=== PATIENT | male | born 1950 | race Caucasian/White ===

== ENCOUNTER 2025-01-06 16:37 | Inpatient (IN) | payer MEDICARE, SELFPAY ==
[2025-01-06] VITALS (7 sets, daily range): BP systolic 121–163; BP diastolic 73–93; BMI 25.1; BMI 25.5
[2025-01-06 13:13] LABS: % Basophils 0.3 % (0-2); % Eosinophils 3.1 % (0-6); % Immature Granulocytes 0.4 % (0-0.5); % Lymphocytes 15.4 % (20.5-51.1); % Monocytes 8.4 % (1.7-9.3); % Neutrophils 72.4 % (42.2-75.2); Absolute Eosinophils 0.2 10^3/uL (0-0.7); Absolute Lymphocytes 1.2 10^3/uL (1.2-3.4); Absolute Monocytes 0.7 10^3/uL (0.1-0.6); Absolute Neutrophils 5.7 10^3/uL (1.4-6.5); Hematocrit 43.3 % (39.0-52.0); Hemoglobin 14.9 g/dL (13.0-18.0); Mean Corp Hgb Conc. 34.4 g/dL (33.0-37.0); Mean Corpuscular Hgb 29.5 pg (27.0-31.0); Mean Corpuscular Volume 85.7 fL (80.0-94.0); Mean Platelet Volume 8.6 fL (7.4-10.4); Nucleated Red Blood Cells % 0 % (-); Platelet Count 206 10^3/uL (130-400); Red Blood Cell Count 5.05 10^6/uL (4.70-6.10); Red Cell Dist. Width 13.6 % (11.5-14.5); White Blood Cell Count 7.8 10^3/uL (4.8-10.8)
[2025-01-06 13:36] LABS: ALT (SGPT) 22 U/L (0-50); AST (SGOT) 20 U/L (17-59); Albumin 3.9 g/dl (3.5-5.0); Alkaline Phosphatase 68 U/L (38-126); Blood Urea Nitrogen 57 mg/dl (9-20); Calcium 9.4 mg/dl (8.4-10.2); Carbon Dioxide 29 mmol/L (22-30); Chloride 98 mmol/L (98-107); Glucose 92 mg/dl (70-99); Lipase 166 U/L (23-300); Potassium 4.5 mmol/L (3.5-5.1); Sodium 138 mmol/L (135-145); Total Bilirubin 1.3 mg/dl (0.2-1.3); Total Protein 6.2 g/dl (6.3-8.2); eGFR 12.18
--- NOTE | 2025-01-06 14:47 | ED.GENMED ---
History of Present Illness
General
Chief Complaint: Abdominal Symptoms
Source: patient
Exam Limitations: none
Time Seen by Provider: 01/06/25 14:13
Nursing documentation reviewed up to this point in time: agreed with
History of Present Illness
History of Present Illness:
74 yo male w h/o NIDDM, HTN states he hasn't been able to urinate for past 2 days.
Had root canal 2 weeks ago, jaw locked up, given rx for Flexeril and Medrol dose pack. Stopped taking them 2 days ago due to inability to urinate.
Denies fever/chills. Is uncomfortable with bladder pressure.
Past History
Past History
ED Past Medical History: HTN and NIDDM
ED Past Surgical History: Orthopedic
Social History
Tobacco: Non-smoker
Alcohol: None
Personal:
Living: with family
Employment: Retired
Review of Systems
Review of Systems
Allergies reviewed?: Yes
All Other Systems: ROS reviewed and negative except as documented in HPI and ROS
Constitutional: Denies fever or chills
Respiratory: Denies trouble breathing
Cardiac: Denies chest pain
ABD/GI: Reports abdominal pain; Denies nausea, vomiting or diarrhea
: Reports difficulty voiding
Musculoskeletal: Reports no symptoms
Skin: Reports no symptoms
Neurological: Reports no symptoms
Phy Exam
Physical Exam
Physical Exam:
GENERAL: No acute distress. A&Ox3.
CONSTITUTIONAL: Afebrile.
EYES: clear, conjunctivae normal
ENMT: moist mucus membranes
RESPIRATORY: Regular respirations, nonlabored, lungs clear.
CARDIOVASCULAR: Regular rate and rhythm, no murmurs, no rubs.
GI: Soft, mildly distended, suprapubic tenderness, normal BS
MUSCULOSKELETAL: Moves with ease. Well perfused.
SKIN: Warm, dry, pink
PSYCH: Normal mood and affect. Well kept, interactive and appropriate
NEUROLOGIC: Awake, alert and oriented. No focal neurological deficits
Course
Orders/Labs/Results
Orders:
Orders
01/06/25 Lunch
Potassium, 2 Gram
At Your Request: Limited Participation
Does patient need a safe tray?: No
01/06/25 12:57
Complete Blood Count/With Diff Urgent
Comprehensive Metabolic Panel Urgent
Lipase Urgent
01/06/25 14:20
Lagunas Placement- Treatment ONCE
Reason for insertion: Acute Retention
01/06/25 16:01
Admit/Transfer Patient As Directed
Co-Sign Provider:
Level of Care: Inpatient admission
Assign to:: Medical/Surgical
Physician / Group: kb/medicine
Diagnosis: toni, urinary retention
Reason for Hospitalization: toni, urinary retention
Expected length of stay greater than two midnights?: Yes
ELOS- Estimated Length of Stay in days: 3
I certify the patient meets the requirements for IP care: Yes
01/06/25 16:02
Code Status As Directed
Resuscitation Status: Full Code
PRN Pain Medication Management As Directed
May give lesser potent ordered pain med per pt: Yes
preference::
Protocol:: Medication orders for pain may be administered in a
manner that supports deferring to patient preference
when the pt is:
- Requesting an ordered lesser potent pain medication.
Least to most potent pain medications are defined
as: acetaminophen < NSAID < tramadol < opioids
(morphine, oxycodone, hydromorphone).
- Requesting a lesser dose of the same medication IF
ORDERED.
- Requesting a less intrusive route of administration
if both routes are prescribed by the provider (PO <
IV).
01/06/25 16:35
Urinalysis Reflex To Culture Urgent
Date Specimen was Collected: 01/06/25
Time Specimen was Collected: 12:51
Urine Microscopic Reflex Cult Urgent
01/06/25 18:09
Bisacodyl [Dulcolax] 10 mg RECTAL [id number] PRN
Docusate W/Senna [Senokot-S] 1 tablet PO BIDPRN PRN
Lactated Ringers [Lr] 1,000 ml IV 100 mls/hr
Polyethylene Glycol Powder [Miralax] 17 grams PO DAILYPRN PRN
Tamsulosin [Flomax] 0.4 mg PO NOW STA
01/06/25 18:09
EKG [Electrocardiogram (*1)] Routine
Reason for Study: QTc Monitoring
Activity As Directed
Activity Level: As Tolerated
Intake/ Output As Directed
Frequency: Per unit guidelines
Vital Signs As Directed
Frequency: Per unit guidelines
Renal & Bladder US [US Renal With Bladder] Routine
Comment:
Reason For Exam: toni, obstruction
DX Deep Vein Thrombosis Video Routine
01/07/25 00:00
Heparin 5,000 units SC Q8
01/07/25 06:00
Basic Metabolic Panel IN AM
Complete Blood Count/No Diff IN AM
TSH IN AM
01/07/25 08:00
Tamsulosin [Flomax] 0.4 mg PO DAILY
01/08/25 06:00
Basic Metabolic Panel IN AM
Complete Blood Count/No Diff IN AM
01/09/25 06:00
Basic Metabolic Panel IN AM
Complete Blood Count/No Diff IN AM
Abnormal Lab Results
01/06/25 01/06/25
12:57 16:35
Absolute Monos (auto) 0.7 H 10^3/uL
(0.1-0.6)
Lymphocytes % 15.4 L %
(20.5-51.1)
BUN 57 H mg/dl
(9-20)
Creatinine 4.7 H* mg/dL
(0.7-1.3)
Total Protein 6.2 L g/dl
(6.3-8.2)
Ur Occult Blood Reflex 4+ A
(Negative)
Urine RBC 30-40 A /HPF
(0-2)
Urine Albumin (Reflex) 1+ A
(Neg - Trace)
01/06/25 12:57
01/06/25 12:57
Vital Signs
Initial and Last Documented VS:
Initial Vital Signs
Temp Pulse Resp BP Pulse Ox
98.2 F 50 16 129/73 98
01/06/25 12:47 01/06/25 12:47 01/06/25 12:47 01/06/25 12:47 01/06/25 12:47
Last Documented Vital Signs
Temp Pulse Resp BP Pulse Ox
98.5 F 84 18 139/86 98
01/06/25 18:26 01/06/25 20:23 01/06/25 18:26 01/06/25 20:23 01/06/25 18:26
MDM/Problems Addressed
Differential Diagnosis Includes:
acute urine retention, UTI, BPH
MDM/Problems Addressed:
74 yo male w h/o NIDDM, HTN states he hasn't been able to urinate for past 2 days.
Had root canal 2 weeks ago, jaw locked up, given rx for Flexeril and Medrol dose pack. Stopped taking them 2 days ago due to inability to urinate.
Denies fever/chills. Is uncomfortable with bladder pressure.
#16 fr Lagunas inserted, return of 1000 clear aquilino urine
2:00 p.m.
CBC: normal
CMP: BUN/Creat 57/4.7 GFR 12.18
Plan: Admit: Acute urine retention, acute kidney failure.
Hospitalist notified of admission.
Chronic conditions affecting care: DM and HTN
*Critical Care Note
Total Time (30-74mins, 75-104mins- exclusive of procedures): Not Applicable
ED Attending Note
-
Portions of this chart may have been created with voice recognition software.� Occasional wrong word or��sound alike� substitutions may have occurred due to the inherent limitations of voice recognition software.
Discharge Plan
Departure
Patient Disposition: Admit
Date of Disposition: 01/06/25
Time of Disposition: 15:01
Admit to: Med/Surg
Presentation/result/management discussed w/ accepting MD/DO: Hospitalist
Condition: Good
Discharge Problem:
Acute retention of urine, Acute renal failure
Interventions
Interventions:
*Risk Screen - Suicide Last Done: 01/06/25 12:47
*General Assessment Last Done: 01/06/25 14:59
*Neglect/Abuse Screening Last Done: 01/06/25 12:47
*ED- Fall Risk Assessment Last Done: 01/06/25 14:59
*ED COVID-19 Vaccine History Last Done: 01/06/25 14:59
*Nursing Disposition Last Done: 01/06/25 17:41
OK-Mndwzv-Dixptfaqhs Assessment Last Done: 01/06/25 14:59
Discharge Date and Time
Discharge Date/Time: 01/06/25 18:17
--- NOTE | 2025-01-06 16:05 | HPS.HSE ---
Family Physician
-
Family Physician: Pedro Vergara
Chief Complaint
-
Inability urinate
History of Present Illness
74-year-old male with history of hypertension, diabetes now presents for inability urinate for the past 2 days. Patient had root canal 2 weeks ago, was given Flexeril and Medrol Dosepak due to issues with the jaw. Patient subsequently stopped
taking them 2 days ago as he noticed he was not able to urinate. Did feel discomfort suprapubically. Denies any other abdominal pain, melena, flank pain, fever, chills. Patient had Lagunas placed in the ED, return of 1000 cc clear aquilino urine.
Otherwise patient afebrile, normotensive, heart rate of 100. Labs notable for creatinine of 4.7. UA still pending.
Medical History
Past Medical History
Past Medical History: Reports HTN and NIDDM
Past Surgical History: Reports Orthopedic
Social History
Tobacco: Non-smoker
Alcohol: None
Personal:
Family History
Family History: Not pertinent
Allergies / Home Medications
Allergies reflects when Allergies were last updated in [employer].
Home Medications with original date entered in [employer]
Allergy/Medication List:
Allergies
Allergy/AdvReac Type Severity Reaction Status Date / Time
No Known Allergies Allergy Verified 01/06/25 12:50
Review of Systems
-
History Source: Patient
A 12 point ROS was completed and negative except as noted: Yes
Physical Exam
Vital Signs
Vital Signs
Temp Pulse Resp BP Pulse Ox
97.6 F 100 16 121/73 95
01/06/25 14:59 01/06/25 14:59 01/06/25 14:59 01/06/25 15:00 01/06/25 15:00
Physical Exam
General: Well Developed, Well Nourished and No Apparent Distress
HEENT: NormoCephalic
Respiratory: Clear
Cardiac: S1/S2 and Regular Rhythm
GI: Non Tender
Genito-urinary: Other (mildly distended, suprapubic tenderness)
Musculoskeletal: No Clubbing
Skin: Warm
Neuro: Awake, Alert, Oriented and AO x 3
Hematologic/Lymphatic: No Lymphadenopathy
Laboratory Results
-
01/06/25 12:57
01/06/25 12:57
Laboratory Results
Total Bilirubin 1.3 mg/dl (0.2-1.3) 01/06/25 12:57
AST 20 U/L (17-59) 01/06/25 12:57
ALT 22 U/L (0-50) 01/06/25 12:57
Alkaline Phosphatase 68 U/L (38-126) 01/06/25 12:57
Lipase 166 U/L (23-300) 01/06/25 12:57
Data Reviewed
-
Lab Data: Labs Reviewed by me
Impression/Plan
-
IMPRESSION:
74-year-old male with history of hypertension, diabetes now presents for inability urinate for the past 2 days. Found to have urinary retention associated with DAVIAN.
PLAN:
#DAVIAN
#Acute urinary retention
� 16 Occitan Lagunas placed with drainage of 1000 cc clear aquilino fluid
� Follow-up UA/urine culture
� Monitor I's and O's
� Will need urology outpatient follow-up
� Initiate tamsulosin
� Follow-up renal/bladder ultrasound
� Avoid opiates, Flexeril
� Monitor renal function
� IV fluids
#Hypertension
#Diabetes
� Medication rec and resume medications if not nephrotoxic
#DVT prophylaxis
� HSQ
[2025-01-06 16:53] LABS: Urine Albumin 1+ (Neg - Trace); Urine Bilirubin Negative (Negative); Urine Character Clear (Clear); Urine Color Yellow; Urine Glucose Negative (Negative); Urine Ketone Negative (Negative); Urine Leukocyte Negative (Negative); Urine Nitrite Negative (Negative); Urine Occult Blood 4+ (Negative); Urine Specific Gravity 1.015 (<1.030); Urine Urobilinogen Negative (Neg - 1+)
[2025-01-06 17:00] LABS: Urine Red Blood Cell 30-40 /HPF (0-2); Urine Squamous Cell 0-2 /LPF (Few); Urine White Cell 0-2 /HPF (0-5)
--- NOTE | 2025-01-06 17:33 | EDRN ---
this RN called the receiving unit and notified them that paper report was going to be tubed up
[2025-01-06] MEDS: FLOMAX 0.4 MG PO (18:23)
[2025-01-06] MEDS: LR 1000 IV (18:23)
[2025-01-06] MEDS: TYLENOL 650 MG PO (18:42)
--- NOTE | 2025-01-06 18:44 | PTCARENOTE ---
Dr. Adames made aware pt. b/p 163/85 when transferred to [facility] from ED and pt. with c/o 5/10 headache. Tylenol given as ordered. Pt. resting in bed with call pollard in reach.
[2025-01-06] MEDS: MELATONIN 10 MG PO (21:16)
[2025-01-07] MEDS: HEPARIN 5000 UNITS SC ×2 (00:13→08:20)
[2025-01-07] MEDS: LR 1000 IV (05:09)
[2025-01-07 06:35] LABS: Hemoglobin 13.6 g/dL (13.0-18.0); Mean Corpuscular Hgb 29.4 pg (27.0-31.0); Mean Corpuscular Volume 86.4 fL (80.0-94.0); Platelet Count 171 10^3/uL (130-400); Red Blood Cell Count 4.63 10^6/uL (4.70-6.10); Red Cell Dist. Width 13.4 % (11.5-14.5); White Blood Cell Count 5.3 10^3/uL (4.8-10.8)
[2025-01-07 07:03] LABS: Blood Urea Nitrogen 32 mg/dl (9-20); Calcium 9.1 mg/dl (8.4-10.2); Carbon Dioxide 31 mmol/L (22-30); Chloride 100 mmol/L (98-107); Estimated Creatinine Clearance 47 ml/min; Glucose 112 mg/dl (70-99); Potassium 3.9 mmol/L (3.5-5.1); Sodium 139 mmol/L (135-145); eGFR 56.93
[2025-01-07 07:35] VITALS: BP 145/85
[2025-01-07] MEDS: PROTONIX 40 MG PO (08:20)
[2025-01-07] MEDS: FLOMAX 0.4 MG PO (08:21)
[2025-01-07] MEDS: MIRALAX 17 GRAMS PO (08:26)
[2025-01-07] MEDS: SENOKOT-S 1 TABLET PO (08:26)
[2025-01-07] MEDS: APRESOLINE 75 MG PO (10:31)
[2025-01-07] MEDS: COREG 6.25 MG PO (10:31)
--- NOTE | 2025-01-07 12:15 | W.PN.HOSP.TC ---
Addendum entered and electronically signed by Tomas Adames MD 01/07/25 14:59:
[id number]
Original Note:
Today's Communication/Plan
-
Lagunas to remain in place
Will need urology outpatient follow-up closely; they are aware
tamsulosin
Avoid opiates, Flexeril
Monitor renal function
Hold ARB/HCTZ for now
follow up with outpt Right Renal MRI
-F/u Urology outpt closely
BMP in 3 days
Assessment / Plan
Assessment / Plan
Physical Exam
General: Well Developed, Well Nourished and No Apparent Distress
HEENT: NormoCephalic
Respiratory: Clear
Cardiac: S1/S2 and Regular Rhythm
GI: Non Tender
Genito-urinary: Lagunas in place, draining clear yellow urine
Musculoskeletal: No Clubbing
Skin: Warm
Neuro: Awake, Alert, Oriented and AO x 3
Hematologic/Lymphatic: No Lymphadenopathy
74-year-old male with history of hypertension, diabetes now presents for inability urinate for the past 2 days. Found to have urinary retention associated with DAVIAN.
PLAN:
#DAVIAN, resolved
#Acute urinary retention
� 16 Jamaican Lagunas placed draining clear yellow urine - to remain in place until seen by Urology
� UA negative
� Monitor I's and O's
� Will need urology outpatient follow-up closely; they are aware
� Initiate tamsulosin
� Follow-up renal/bladder ultrasound - renal mass - needs f/u
� Avoid opiates, Flexeril
� Monitor renal function
� IV fluids
#Mass within the upper pole of the right kidney
-suspicious for renal cell neoplasm/renal cell carcinoma.
-Urology informed - they will follow up with outpt MRI
-F/u Urology outpt closely
#Hypertension
#Diabetes
� resume - hold HCTZ and losartan in the interim until cleared by PCP
#DVT prophylaxis
� HSQ
More than 30 minutes spent in discharge including
Final examination of the patient
Summarizing hospital stay
Instructions for continuing care to all relevant caregivers
Preparation of discharge records, prescriptions, and referral forms
Total time spent (in minutes): 36
Anticipated Discharge: Today
Subjective/Interval History
-
Date of Service: January 07, 2025
No acute events overnight, Lagunas draining clear yellow urine
Objective Data
-
Labs:
Laboratory Results
01/07/25
05:45
WBC 5.3
Hgb 13.6
Hct 40.0
Plt Count 171
Sodium 139
Potassium 3.9
Chloride 100
Carbon Dioxide 31 H
BUN 32 H
Creatinine 1.3
Glucose 112 H
Calcium 9.1
Vital Signs:
Vital Signs
Temp Pulse Resp BP Pulse Ox
98.2 F 59 20 145/85 95
01/07/25 07:35 01/07/25 10:31 01/07/25 07:35 01/07/25 10:31 01/07/25 08:20
I&O
01/06/25 01/07/25 01/08/25
06:59 06:59 06:59
Intake Total 420 / 420
Output Total 3975 / 3975
Balance -3975 / -3975 420 / 420
Review of Systems
-
History Source: Patient
All other systems: Not reviewed unless documented
Data Reviewed
-
Ultrasound: Report Reviewed by me
Labs: Labs Reviewed by me
--- NOTE | 2025-01-07 12:21 | W.DS.TRANS ---
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
-
Discharge Instructions:
Discharge Diagnosis/Procedures #DAVIAN
#Acute urinary retention
Diet Low Cholesterol,Low Fat,Diabetic, Carb
Controlled
Blood Work bmp in 3 days monitoring renal function
Instructions:
Stand-Alone Forms:
Changes to Home Medications: Yes
Discharge Medications:
DC Medications w/original date entered in [employer]
acetaminophen 500 mg tablet 1,000 mg PO DAILYPRN PRN mild pain 01/06/25
aspirin 325 mg tablet 325 mg PO HS 01/06/25
bismuth subsalicylate 262 mg/15 mL oral suspension (Pepto-Bismol) 524 mg PO DAILYPRN PRN upset stomach 01/06/25
carvedilol 6.25 mg tablet 6.25 mg PO BID 01/06/25
diltiazem HCl 120 mg capsule,extended release 24 hr 120 mg PO HS 01/06/25
esomeprazole magnesium 20 mg capsule,delayed release (Nexium) 20 mg PO DAILY 01/06/25
fluticasone propionate 50 mcg/actuation nasal spray,suspension 1 spray intranasal BID 01/06/25
hydralazine 25 mg tablet 75 mg PO BID 01/06/25
losartan 100 mg-hydrochlorothiazide 25 mg tablet 1 tab PO HS 01/06/25
melatonin 10 mg tablet 10 mg PO HS PRN sleep 01/06/25
metformin 500 mg tablet 500 mg PO BID 01/06/25
rosuvastatin 20 mg tablet 20 mg PO DAILY 01/06/25
sennosides 8.6 mg tablet (senna) 8.6 mg PO DAILYPRN PRN constipation 01/06/25
tamsulosin 0.4 mg capsule 0.4 mg PO DAILY 30 days #30 caps 01/07/25
Home Medication Changes
tamsulosin 0.4 mg capsule 0.4 mg PO DAILY 30 days #30 caps 01/07/25
Pending Results: No
[2025-01-07 12:29] VITALS: BP 112/62
--- NOTE | 2025-01-07 12:40 | CM ---
Alert awake oriented pt who lives with Aylin in 2 story home with 3 steps to enter and 12 steps to bed bathroom. He is independent in driving and all ADLs. He aid he agrees with dc today to home. Dc with [facility] . Offered VN he requested [facility]
Referral placed in care port.Dgt Janel will drive him home.
No DME hx
No VN /SNF hx
Pharmacy [facility]
PCP DR Ursula Puckett [facility]
PLAN Home with [facility]
== END 2025-01-07 13:40 | disposition home health service (06) | DRG 684 ==
LOC: 4 EAST ACU 16:37
PROVIDERS: Emergency Medicine; ADMITTING PHYSICIAN Internal Medicine; EMERGENCY PHYSICIAN Emergency Medicine; FAMILY PHYSICIAN Family Medicine
DX: N17.9 Acute kidney failure, unspecified (principal); I10 Essential (primary) hypertension; E11.9 Type 2 diabetes mellitus without complications; R33.8 Other retention of urine; N28.9 Disorder of kidney and ureter, unspecified; Z79.84 Long term (current) use of oral hypoglycemic drugs; Z79.899 Other long term (current) drug therapy
CPT/HCPCS: 51702; 51798; 76770; 80048; 80053; 81003; 81015; 83690; 84443; 85025; 85027; 93005; 99285

== ENCOUNTER → 2025-01-16 07:08 | Outpatient (REF) | payer MEDICARE, OTHER, SELFPAY | LOC: MRI 07:08 | PROVIDERS: ATTENDING PHYSICIAN Specialist; FAMILY PHYSICIAN Family Medicine | DX: R33.8 Other retention of urine (principal); D41.01 Neoplasm of uncertain behavior of right kidney | CPT/HCPCS: 74183; A9575 ==

== ENCOUNTER → 2025-02-12 12:57 | Outpatient (REF) | payer MEDICARE, OTHER, SELFPAY | LOC: SDSPAT 12:57 | PROVIDERS: ATTENDING PHYSICIAN Urology; FAMILY PHYSICIAN Family Medicine | DX: D41.01 Neoplasm of uncertain behavior of right kidney (principal) | CPT/HCPCS: 36415; 86850; 86900; 86901 ==

== ENCOUNTER 2025-02-22 06:07 | Day surgery (SDC) | payer MEDICARE, OTHER, SELFPAY ==
[2025-02-12 13:51] VITALS: BMI 24.0
[2025-02-22] VITALS (11 sets, daily range): BP systolic 111–136; BP diastolic 55–73; BMI 24.0
[2025-02-22 06:54] LABS: Glucose - Point of Care 117 mg/dl (70-99)
[2025-02-22] MEDS: NORMOSOL-R/PLASMALYTE-A 1000 IV (06:59)
[2025-02-22 10:07] LABS: Glucose - POC 183 mg/dl (70-99); HCO3 - POC 27 mmol/L (21-28); Hematocrit - POC 35 % PCV (42-52); Hemodilution- POC Yes; Hemoglobin Calculated - POC 11.7; Ionized Calcium - POC 1.09 mmol/L (1.15-1.33); Lactate - POC 1.72 mmol/L (0.36-0.75); O2 Saturation %Calculated-POC 99.8 % (94-98); PCO2 - POC 40 mmHg (35-48); PO2 - POC 216 mmHg (83-108); Potassium - POC 3.9 mmol/L (3.5-5.1); Sodium - POC 142 mmol/L (136-145); Specimen Type - POC Arterial; pH - POC 7.45 (7.35-7.45)
--- NOTE | 2025-02-22 11:33 | W.IMMPOSTOP ---
Surgical Immed Post Op Note
-
Primary Surgeon: Camachofer
Assisting Surgeon: none
Pre-op Diagnosis: R renal mass
Post-op Diagnosis: same
Procedure Performed: Robotic R partial nephrectomy
Anesthesia Type: general
Specimen / Cultures: R renal mass
Estimated Blood Loss: 900cc
Complications: none
Operative Findings: -
[2025-02-22 12:16] LABS: Glucose - Point of Care 161 mg/dl (70-99)
[2025-02-22 12:19] LABS: Hematocrit 32.8 % (39.0-52.0); Hemoglobin 10.7 g/dL (13.0-18.0)
[2025-02-22] MEDS: NSS 1000 IV (13:41)
--- NOTE | 2025-02-22 13:45 | PTCARENOTE ---
Received patient from PACU via bed. Pt AAOX3. Pox: 96% 2L NC. IVFs infusing without difficulty. Patient denies pain. Call pollard within reach. Plan of care ongoing.
[2025-02-22 14:04] LABS: Blood Urea Nitrogen 20 mg/dl (9-20); Carbon Dioxide 28 mmol/L (22-30); Chloride 106 mmol/L (98-107); Estimated Creatinine Clearance 73 ml/min; Glucose 156 mg/dl (70-99); Sodium 140 mmol/L (135-145); eGFR > 60.00
[2025-02-22 16:19] LABS: Glucose - Point of Care 145 mg/dl (70-99)
[2025-02-22] MEDS: TYLENOL 650 MG PO (16:24)
[2025-02-22] MEDS: SENOKOT 17.2 MG PO (19:53)
[2025-02-22] MEDS: COREG 6.25 MG PO (19:53)
[2025-02-22] MEDS: APRESOLINE 75 MG PO (19:53)
[2025-02-22] MEDS: PERCOCET 5/325 1 TABLET PO (20:01)
[2025-02-22 21:46] LABS: Glucose - Point of Care 174 mg/dl (70-99)
[2025-02-22] MEDS: COZAAR 100 MG PO (22:02)
[2025-02-22] MEDS: CARDIZEM CD 120 MG PO (22:02)
[2025-02-22] MEDS: ORETIC 25 MG PO (22:04)
[2025-02-23] MEDS: PERCOCET 5/325 1 TABLET PO ×2 (02:40→08:35)
[2025-02-23 03:00] VITALS: BP 119/54
[2025-02-23 06:00] VITALS: BMI 24.0
[2025-02-23 06:31] LABS: Hematocrit 31.6 % (39.0-52.0); Hemoglobin 10.3 g/dL (13.0-18.0); Mean Corp Hgb Conc. 32.6 g/dL (33.0-37.0); Mean Corpuscular Hgb 29.2 pg (27.0-31.0); Mean Corpuscular Volume 89.5 fL (80.0-94.0); Mean Platelet Volume 8.6 fL (7.4-10.4); Platelet Count 228 10^3/uL (130-400); Red Blood Cell Count 3.53 10^6/uL (4.70-6.10); Red Cell Dist. Width 13.4 % (11.5-14.5); White Blood Cell Count 13.8 10^3/uL (4.8-10.8)
[2025-02-23 06:54] LABS: Blood Urea Nitrogen 18 mg/dl (9-20); Calcium 8.3 mg/dl (8.4-10.2); Carbon Dioxide 27 mmol/L (22-30); Chloride 107 mmol/L (98-107); Estimated Creatinine Clearance 60 ml/min; Glucose 118 mg/dl (70-99); Potassium 3.9 mmol/L (3.5-5.1); Sodium 140 mmol/L (135-145); eGFR > 60.00
[2025-02-23 07:05] VITALS: BP 115/59
[2025-02-23 07:58] LABS: Glucose - Point of Care 127 mg/dl (70-99)
[2025-02-23] MEDS: APRESOLINE 75 MG PO (08:28)
[2025-02-23] MEDS: SENOKOT 17.2 MG PO (08:28)
[2025-02-23] MEDS: CRESTOR 20 MG PO (08:28)
[2025-02-23] MEDS: COREG 6.25 MG PO (08:29)
[2025-02-23] MEDS: PROTONIX 40 MG PO (08:29)
[2025-02-23 08:46] LABS: Glycohemoglobin (HgbA1c) 6.2 % (4.0-5.6)
--- NOTE | 2025-02-23 09:54 | W.PN.URO.CBU ---
Today's Communication / Plan
-
Discharge
Assessment / Plan
-
74M with R renal mass
s/p R partial nephrectomy
- Reg diet
- Ambulate
- Toro out - to resume CIC
- Resume tamsulosin
- Discharge today
Diagnosis
-
Date of Service: February 23, 2025
-
Patient Diagnosis:
R renal mass
Post Op Day: s/p Tung R partial nx 02/22
Subjective
-
no events
tolerating diet
ambulated minimally
tolerating toro
Objective
-
Vital Signs
Temp Pulse Resp BP Pulse Ox
98.5 F 60 16 115/59 94
02/23/25 07:05 02/23/25 07:05 02/23/25 07:05 02/23/25 07:05 02/23/25 07:05
Intake and Output
02/22/25 02/23/25 02/24/25
06:59 06:59 06:59
Intake Total 830 / 830 480 / 480
Output Total 1130 / 1130
Balance -300 / -300 480 / 480
Intake:
Oral fluids 480 / 480 480 / 480
IV fluids (Total) 350 / 350
Normosol 100 / 100
Output:
Urine, Toro 1130 / 1130
Laboratory Results
02/23/25 05:47
02/23/25 05:47
Physical Exam
-
General - well developed, well nourished, no acute distress
Chest - clear bilaterally
Abdomen - soft, non-tender, no CVAT, no incisional pain or distention
Toro clear urine
Skin - warm & dry with no rash
Neuro - AOx3, no motor deficits
--- NOTE | 2025-02-23 10:59 | CM ---
CM reviewed chart, reviewed with nurse, muna lazar. Patient seen bedside, for discharge today. Patient resides with his in a multiple story home, two steps to enter, bedroom on second floor. Patient denies use of DME, reports VN in past,
denies SNF. Patient confirms PCP Chapincito Ramires, pharmacy [facility] [place], confirms prescription coverage. Patient denies insecurities at home. Patient confirms transportation home from daughter, denies needs from CM. CM will continue to follow for all
discharge planning needs.
Plan; home no needs.
[2025-02-23 11:05] VITALS: BP 122/46
== END 2025-02-23 11:45 | disposition home or self-care (01) ==
LOC: SDS 06:07
PROVIDERS: ATTENDING PHYSICIAN Urology; FAMILY PHYSICIAN Family Medicine
DX: C64.1 Malignant neoplasm of right kidney, except renal pelvis (principal); N28.89 Other specified disorders of kidney and ureter
CPT/HCPCS: 50543; 80048; 82962; 83036; 85014; 85018; 85027; 86900; 86901; 86920; 88307

== ENCOUNTER → 2025-03-21 12:26 | Outpatient (REF) | payer MEDICARE, OTHER, SELFPAY ==
[2025-03-21 16:00] LABS: PSA, Total - Screen 8.70 ng/ml (0.0-4.0)
== END ==
LOC: SDSPAT 12:26
PROVIDERS: ATTENDING PHYSICIAN Urology; FAMILY PHYSICIAN Family Medicine
DX: Z01.818 Encounter for other preprocedural examination (principal)
CPT/HCPCS: 36415; G0103

== ENCOUNTER 2025-03-30 06:31 | Day surgery (SDC) | payer MEDICARE, OTHER, SELFPAY ==
[2025-03-21 14:12] VITALS: BMI 25.3
[2025-03-30] VITALS (15 sets, daily range): BP systolic 133–163; BP diastolic 62–87; BMI 25.3
[2025-03-30 13:43] LABS: Glucose - Point of Care 108 mg/dl (70-99)
[2025-03-30] MEDS: NORMOSOL-R/PLASMALYTE-A 1000 IV (13:45)
[2025-03-30 15:05] LABS: Glucose - Point of Care 97 mg/dl (70-99)
--- NOTE | 2025-03-30 16:55 | W.IMMPOSTOP ---
Surgical Immed Post Op Note
-
Primary Surgeon: Peffer
Assisting Surgeon: none
Pre-op Diagnosis: BPH, retention
Post-op Diagnosis: same
Procedure Performed: TURP
Anesthesia Type: general
Specimen / Cultures: prostate chips
Estimated Blood Loss: 10cc
Complications:
Operative Findings:
Normal GALLO without nodules
Good hemostasis after TURP
[2025-03-30 18:15] LABS: Glucose - Point of Care 119 mg/dl (70-99)
[2025-03-30] MEDS: TYLENOL 650 MG PO (18:50)
--- NOTE | 2025-03-30 19:45 | PTCARENOTE ---
Patient arrived from PACU to 2 South, CBI running from bag #2. Urine out in toro very pale pink, nearly clear. Patient is AAOx3, breathing RA, very pleasant, no c/o pain at this time. VSS, assessment on going.
[2025-03-30] MEDS: NSS 1000 IV (19:48)
[2025-03-30] MEDS: APRESOLINE 75 MG PO (20:36)
[2025-03-30] MEDS: COREG 6.25 MG PO (20:37)
[2025-03-30 21:34] LABS: Glucose - Point of Care 279 mg/dl (70-99)
[2025-03-30] MEDS: ASPIR LOW (ENTERIC COATED) 81 MG PO (21:58)
[2025-03-30] MEDS: CARDIZEM CD 120 MG PO (21:58)
[2025-03-30] MEDS: ORETIC 25 MG PO (21:58)
[2025-03-30] MEDS: COZAAR 100 MG PO (21:59)
[2025-03-31 03:05] VITALS: BP 123/65
[2025-03-31] MEDS: NSS 1000 IV (03:39)
--- NOTE | 2025-03-31 06:13 | PTCARENOTE ---
CBI clamped per order at 0600; urine very pale pink to nearly clear at time of clamping. Patient comfortable and sleeping.
[2025-03-31 06:47] LABS: Blood Urea Nitrogen 17 mg/dl (9-20); Calcium 8.4 mg/dl (8.4-10.2); Carbon Dioxide 27 mmol/L (22-30); Chloride 107 mmol/L (98-107); Estimated Creatinine Clearance 79 ml/min; Glucose 144 mg/dl (70-99); Potassium 3.8 mmol/L (3.5-5.1); Sodium 139 mmol/L (135-145); eGFR > 60.00
[2025-03-31 06:52] LABS: Hematocrit 35.0 % (39.0-52.0); Hemoglobin 11.4 g/dL (13.0-18.0); Mean Corp Hgb Conc. 32.6 g/dL (33.0-37.0); Mean Corpuscular Volume 88.2 fL (80.0-94.0); Platelet Count 191 10^3/uL (130-400); Red Cell Dist. Width 13.3 % (11.5-14.5)
[2025-03-31 07:05] VITALS: BP 138/72
[2025-03-31 07:12] LABS: Glucose - Point of Care 131 mg/dl (70-99)
[2025-03-31] MEDS: COREG 6.25 MG PO (07:42)
[2025-03-31] MEDS: APRESOLINE 75 MG PO (07:42)
[2025-03-31] MEDS: PROTONIX 40 MG PO (07:43)
[2025-03-31] MEDS: TYLENOL 650 MG PO (07:43)
[2025-03-31] MEDS: FLOMAX 0.4 MG PO (07:43)
[2025-03-31] MEDS: CRESTOR 20 MG PO (07:43)
[2025-03-31 08:52] LABS: Glycohemoglobin (HgbA1c) 5.5 % (4.0-5.6)
--- NOTE | 2025-03-31 09:33 | PTCARENOTE ---
3 way toro with clear yellow output. Per Dr. Menendez, 300 ml CBI instilled, toro removed. Small amount of bleeding noted at tip of penis upon removal. Urinal provided. Plan of care discussed, pt verbalized understanding. Care ongoing.
--- NOTE | 2025-03-31 10:23 | W.DCSUMMARY ---
Discharge Summary
Discharge Data
Date of Admission: 03/30/25
Date of Discharge: 03/31/25
Total time spent discharging patient (in min): 35
-
Pending Results: Yes (pathology specimen)
Hospital Course
74 yr old with rentention Failed med therapy . Underwent uneventful TURP yesterday Stable toro out and voiding will observe rest of AM and if stable home without toro
Discharge Plan
-
Patient Disposition: Home (Routine Discharge)
Discharge Diagnosis/Procedures: BPH, urinary retention
Transurethral resection of prostate
Condition: Good
Diet: No restrictions
Activity: No strenuous activity
Additional Activity: avoid lifting, straining, strenuous activity for 2 weeks after surgery
Driving Restrictions: As prior to admission
Bathing Restrictions: None
Activity Restrictions/Additional Instructions:
Some blood in urine off/on is typical after this operation
Stay well hydrated to avoid clots
Call or go to ER with inability/difficulty urinating or if passing large amounts of blood clot
Take tylenol or ibuprofen as needed for pain
Continue alfuzosin until follow up with Dr. Fields
The office will call to schedule a post op visit in about 3 weeks
Referrals:
Chapincito Ramires DO [Family Provider, Family Practice]
Prescriptions:
Continued
metformin 500 mg tablet
500 mg PO BID
carvedilol 6.25 mg tablet
6.25 mg PO BID
hydralazine 25 mg tablet
75 mg PO BID
acetaminophen 500 mg Tablet
1,000 mg PO DAILYPRN PRN (Reason: mild pain)
losartan-hydrochlorothiazide 100-25 mg tablet
1 tab PO HS
diltiazem HCl 120 mg capsule,extended release 24hr
120 mg PO HS
fluticasone propionate 50 mcg/actuation [place],Suspension
1 spray INTRANASAL BID
esomeprazole magnesium [Nexium] 20 mg Capsule,Delayed Release(Dr/Ec)
20 mg PO DAILY
rosuvastatin 20 mg tablet
20 mg PO DAILY
alprazolam 0.25 mg Tablet
0.125 mg PO HS PRN (Reason: insomnia)
aspirin 81 mg Tablet,Delayed Release (Dr/Ec)
81 mg PO HS
alfuzosin 10 mg Tablet Extended Release 24 Hr
10 mg PO HS
Discharge Orders:
Discharge Patient (As Directed); Ordered 03/31/25
Ordered By: Kurt Menendez
Discharge Date and Time
Print Language: MACEDONIAN
[2025-03-31 11:05] VITALS: BP 120/60
[2025-03-31 11:51] LABS: Glucose - Point of Care 151 mg/dl (70-99)
== END 2025-03-31 13:39 | disposition home or self-care (01) ==
LOC: SDS 06:31
PROVIDERS: ATTENDING PHYSICIAN Urology; FAMILY PHYSICIAN Family Medicine
DX: N40.1 Benign prostatic hyperplasia with lower urinary tract symptoms (principal); N41.1 Chronic prostatitis; N35.919 Unspecified urethral stricture, male, unspecified site; R33.8 Other retention of urine
CPT/HCPCS: 52601; 80048; 82962; 83036; 85027; 88305